=== PATIENT | female | born 1965 | race Caucasian/White ===

== ENCOUNTER 2019-09-27 09:11 | Day surgery (SDC) | payer BC ==
[~2019-09-27 09:11] MED LIST: MITOMYCIN SCH; STERILE WATER FOR INJ SCH
[2019-09-27] MEDS ORDERED: Midazolam* 1 MG/ML 2 ML VIAL (2 MG) ONE ×3 (10:12→11:22)
[2019-09-27] MEDS ORDERED: Phenylephrine OPHTH SOL 2.5%* 2 ML ONE (10:54)
[2019-09-27] MEDS ORDERED: Naloxone* 0.4 MG/ML 1 ML VIAL IV PRN (11:36)
[2019-09-27] MEDS ORDERED: Acetaminophen TAB* 325 MG PO PRN (11:36)
[2019-09-27 11:54] VITALS: BP 123/83
--- NOTE | 2019-09-27 14:50 | OP ---
DATE OF OPERATION: 09/27/19 - MD [facility] DATE OF : 69 SURGEON: Dr. Tristan Concepcion. MANAGER ASSEMBLY: None. ANESTHESIA: Local with intravenous sedation. PRE-OP DIAGNOSIS: Pterygium, left eye, nasally. POST-OP DIAGNOSIS: Pterygium, left eye, nasally. OPERATIVE PROCEDURE: Excision of pterygium, left eye, with amniotic membrane graft. COMPLICATIONS: None. BLOOD LOSS: Minimal. DESCRIPTION OF PROCEDURE: The patient was brought to the operating room and a drop of tetracaine was placed into her left eye followed by a drop of phenylephrine. The patient was given intravenous sedation. The patient's left eye was prepped and draped in the usual sterile fashion for ophthalmic surgery. A speculum was placed in the left eye. A 6 o'clock and 12 o'clock limbal traction suture was placed. This 6-0 Vicryl on a spatulated needle was atraumatically placed in the peripheral cornea of the limbus and the clamp was used to put traction on the eye and pull into abduction. The pterygium borders were marked with a marking pen. A very small amount of lidocaine 1% with epinephrine was injected on a 30-gauge needle underneath the body of the pterygium. A Bala scissor was used to excise the pterygium, first with superior and inferior radial cuts and then with a vertical cut connecting the two. The pterygium itself was avulsed towards the cornea and with sharp and blunt dissection, it was removed from the eye. The underlying corneal bed was treated with a gerard bur. The scleral bed was treated with cautery. The underlying defect was measured and mitomycin-C was placed on the surface of the eye at 0.04% for exactly one minute. This was done by cutting a small Gelfoam pledget to match the size of the scleral bed, soaked in the mitomycin, and then placed on the eye for the timed duration. After the Gelfoam was removed, the surface of the eye was irrigated copiously with a full bottle balanced saline solution. All instruments touching the mitomycin were removed from the field. At this point, donor amniotic membrane graft was cut to the appropriate size. It was removed from the backing and placed on the cornea for the moment. Tisseel tissue glue was applied to the scleral bed. The amniotic membrane graft was then dragged across the cornea and placed in its position over the scleral defect. The edges of the graft were gently crimped with the conjunctival edges and the glue was allowed to dry. At this point, the sutures were removed from the limbus. The speculum was atraumatically removed from the eye with care not to dislocate the graft. The patient's drape was removed from the eye. A small amount of Maxitrol ointment was placed in the surface of the eye. The eye was closed, patched and shielded and the patient was sent to the recovery room in stable condition with postoperative instructions and followup appointment given. [id number] #: [id number]
== END 2019-09-27 12:11 | disposition home or self-care (01) ==
LOC: OREAST 09:11
PROVIDERS: ATTEND Ophthalmology
DX: H11.042 Peripheral pterygium, stationary, left eye (principal); E03.9 Hypothyroidism, unspecified; J45.909 Unspecified asthma, uncomplicated; Z91.010 Allergy to peanuts; Z88.1 Allergy status to other antibiotic agents
CPT/HCPCS: 88304; A9270-GY; C1776; J2250; J9280; V2790

== ENCOUNTER 2020-10-16 05:58 | Inpatient (IN) ==
[2020-10-16] MEDS ORDERED: Buffered Lidocaine 1% SYRIN 1 ml INTRADERM ONE ×2 (06:00→06:27)
[2020-10-16] MEDS ORDERED: Dexamethasone IV 4 MG/ML VIAL 1 ml VIAL IV SLOW PU ONE (06:00)
[2020-10-16] MEDS ORDERED: Famotidine IV 10 MG/ML 2 ml VIAL (20 mg) IV ONE (06:00)
[2020-10-16] MEDS ORDERED: Lactated Ringers 1000 ml BAG 1,000 ML IV SCH (06:00)
[2020-10-16] MEDS ORDERED: ceFAZolin 2 GM PREMIX 2 GM/50 ML BAG ONE (06:26)
[2020-10-16] MEDS ORDERED: Dexamethasone IV 4 MG/ML VIAL 1 ml VIAL ONE (06:26)
[2020-10-16] MEDS ORDERED: Famotidine IV 10 MG/ML 2 ml VIAL (20 mg) ONE (06:27)
[2020-10-16] MEDS ORDERED: Lidocaine 1% w EPI 1:100,000 MDV 20 ML VIAL ONE (06:51)
[2020-10-16] MEDS ORDERED: Bacitracin INJECTION 50,000 UNITS ONE (06:51)
[2020-10-16] MEDS ORDERED: Propofol 10 MG/ML 20 ML BTL ONE ×2 (06:53→10:40)
[2020-10-16] MEDS ORDERED: Remifentanil 2 MG VIAL ONE (06:53)
[2020-10-16] MEDS ORDERED: Succinylcholine 200 mg VIAL 20 mg/ml 10 ml VIAL (200 mg) ONE (06:53)
[2020-10-16] MEDS ORDERED: Midazolam 2 mg/2 ml VIAL 1 mg/ml 2 ml VIAL (2 mg) ONE (06:53)
[2020-10-16] MEDS ORDERED: fentaNYL 250 mcg/5 ml 50 MCG/ML 5 ml VIAL (250 MCG) ONE (06:53)
[2020-10-16] MEDS ORDERED: Ondansetron 4 mg VIAL 2 MG/ML 2 ml VIAL ONE (06:53)
[2020-10-16] MEDS ORDERED: Rocuronium 50 mg VIAL 10 mg/ml 5 ml VIAL (50 mg) ONE (06:53)
[2020-10-16] MEDS ORDERED: Lidocaine 2% PF 5 ML VIAL ONE (06:54)
[2020-10-16] MEDS ORDERED: Phenylephrine IV 10 MG/ML 1 ml VIAL ONE (06:54)
[2020-10-16] MEDS ORDERED: Propofol 10 mg/ml 100 ML BTL 0 ML ONE (07:08)
[2020-10-16] MEDS ORDERED: Propofol 10 mg/ml 100 ML BTL 100 ML ONE (07:26)
[2020-10-16] MEDS ORDERED: Lidocaine 1% w EPI 1:200,000 SDV 30 ML VIAL ONE (07:34)
[2020-10-16] MEDS ORDERED: fentaNYL 100 mcg/2 ml 50 MCG/ML VIAL IV PRN (08:09)
[2020-10-16] MEDS ORDERED: Prochlorperazine 5 mg/ml 2 ml VIAL (10 mg) IV PRN (08:09)
[2020-10-16] MEDS ORDERED: HYDROcodone/ACETAMIN 5/325 mg TAB PO PRN ×2 (08:09→11:14)
[2020-10-16] MEDS ORDERED: oxyCODONE/Acetamin 5/325 mg TAB PO PRN (08:09)
[2020-10-16] MEDS ORDERED: Naloxone 0.4 mg VIAL 0.4 mg/ml 1 ml VIAL IV PRN (08:09)
[2020-10-16] MEDS ORDERED: HYDROmorphone 1 MG/1 ML SYRINGE ONE (09:25)
[2020-10-16] MEDS ORDERED: Acetaminophen IV 1 GM/100ML 100 ML ONE (10:37)
[2020-10-16] MEDS ORDERED: Ondansetron 4 mg VIAL 2 MG/ML 2 ml VIAL IV PRN (11:14)
[2020-10-16] MEDS ORDERED: Magnesium Hydroxide LIQ 30 ML UDC PO PRN (11:23)
[2020-10-17] MEDS: HYDROcodone/ACETAMIN 5/325 mg TAB PO PRN ×2 (05:47→10:54)
[2020-10-17 07:18] VITALS: BP 112/61
[2020-10-17] MEDS ORDERED: Conjugated Estrogens 0.625 TAB PO SCH (09:00)
[2020-10-17] MEDS ORDERED: Influenza VAC *QUAD* 2020-21* 0.5 ML SYRINGE IM ONE (09:00)
[2020-10-17] MEDS ORDERED: Pneumococcal Vac 23-Polyvalent IM ONE (09:00)
== END 2020-10-17 11:42 | disposition home or self-care (01) | DRG 321 ==
LOC: AA 05:58 → SSU 12:40
PROVIDERS: ADMIT Neurological Surgery; ATTEND Neurological Surgery